=== PATIENT | male | born 1990 | race Caucasian/White ===

== ENCOUNTER 2016-11-17 14:18 | Emergency (ER) | payer MEDICAID ==
[~2016-11-17] VITALS: Ht 157.5 cm; Wt 64.7 kg
[2016-11-17] MEDS ORDERED: SODIUM CHLORIDE 0.9% 1,000ML IVBOLUS ONE (16:00)
[2016-11-17] MEDS ORDERED: SODIUM CHLORIDE FLUSH 10ML SYR IVF ONE (16:00)
[2016-11-17] MEDS ORDERED: methylPREDNISolone SOD SUCC 125 MG/2 ML IVP ONE (16:00)
[2016-11-17] MEDS ORDERED: CEFTRIAXONE PMX 1GM/50ML 50 ML IVPB ONE (16:00)
[2016-11-17] MEDS ORDERED: AZITHROMYCIN 500 MG in SODIUM CHLORIDE 0.9% 250 ML IVPB ONE (16:00)
[2016-11-17] MEDS ORDERED: ALBUTEROL/IPRATROPIUM 2.5MG/0.5MG, 3 ML NPPB ONE (16:00)
[2016-11-17] MEDS ORDERED: ALBUTEROL/IPRATROPIUM 2.5MG/0.5MG, 3 ML ONE (16:01)
[2016-11-17 16:23] LABS: HEMATOCRIT 44.7 % (39.2-51.8)
[2016-11-17] MEDS ORDERED: CEFTRIAXONE PMX 1GM/50ML 50 ML ONE (16:24)
[2016-11-17] MEDS ORDERED: methylPREDNISolone SOD SUCC 125 MG/2 ML ONE (16:24)
[2016-11-17 16:32] LABS: BLOOD UREA NITROGEN 13 mg/dL (7-18)
[2016-11-17 18:01] VITALS: BP 118/67
== END 2016-11-17 18:03 | disposition home or self-care (01) ==
LOC: ED 17:26
DX: J45.901 Unspecified asthma with (acute) exacerbation (principal); R04.2 Hemoptysis; F17.200 Nicotine dependence, unspecified, uncomplicated; Z90.49 Acquired absence of other specified parts of digestive tract
CPT/HCPCS: 36415; 71010; 80048; 82040; 83880; 85025; 85379; 85610; 85730; 87040; 93005; 94640; 96365; 96368; 96375; 99285; J0456; J0696; J2930; J7030; J7050; J7620